=== PATIENT | female | born 1965 | race Caucasian/White ===

== ENCOUNTER 2016-03-17 00:10 | Emergency (ER) | payer OTHER ==
[~2016-03-17] VITALS: Ht 165.1 cm; Wt 90.9 kg
[~2016-03-17 00:10] MED LIST: AMOX500T2 PO; FLUC150T48 PO; HYDR-3090 PO; HYDR-4003 PO
[2016-03-17 00:12] VITALS: BP 160/103; PULSE 90; RESP 16; O2SAT 98
--- NOTE | 2016-03-17 01:14 | ED.REPORT ---
HPI-URI / Cough / Cold Date of Service Mar 17, 2016 ED Provider: Polo Iglesias DO A 51 year old female with a history of smoking and tonsillectomy presents to the ED complaining of a productive cough. This is accompanied by headache, congestion, diarrhea, dry throat, nausea, and dizziness. She denies vomiting. These symptoms began two weeks ago and have persisted since. Nursing Notes Stated Complaint: POSS FLU Chief Complaint: FLU/Cold Symptoms Nursing Notes Reviewed: Yes Allergies: Coded Allergies: No Known Allergies (Unverified , 05/01/15) Scheduled Amoxicillin (Amoxicillin) 500 Mg Tablet 500 MG PO TID Fluconazole (Diflucan) 150 Mg Tablet 150 MG PO ONCE Scheduled PRN Hydrocodone-Acetaminophen 5-300 mg (Hydrocodone-Acetaminophen 5-300 mg) 1 Each Tablet 1-2 TABLET PO Q4H PRN PRN For Pain Hydrocodone-Acetaminophen 5-325 mg (Hydrocodone-Acetaminophen 5-325 mg) 1 Each Tablet 1 TABLET PO Q4H PRN PRN For Pain General Time Seen by MD: 01:14 Chief Complaint Cough, productive... Hx Obtained From: Patient Arrived By: Walk-in Onset Occurred: More than a week ago... Symptom Duration: Since onset Recent Healthcare: No recent doctor visit, No recent hospitalization Similar Sx Previous: No Past Medical History Past Medical History Notes: PCP: None (confirmed 05/01/25) Past Medical History Healthy. Past Surgical History 1. Breast reduction (1995). 2. Tonsillectomy. Smoking History Current Every Day Smoker Social History Alcohol Use: Denies alcohol use Drug Use: Denies drug use Ambulatory Status Independent Review of Systems Respiratory: Reports: Prod cough, clear, Denies: Shortness of breath GI: Reports: Diarrhea, Nausea, Denies: Abdominal pain, Vomiting Skin: Denies Rash Neurologic: Reports: Dizziness, Headache Complete sys rev & neg: except as marked. Physical Exam Initial Vital Signs Vital Signs (First) Date Time Temp Pulse Resp B/P Pulse Ox O2 Delivery O2 Flow Rate FiO2 03/17/16 00:12 36.1 90 16 160/103 98 Room Air Initial VS: Reviewed General/Constitutional: Awake, Alert ENT: Atraumatic, Airway patent, Mucous membranes moist palate petichii Respiratory / Chest: Atraumatic, No respiratory distress rhonchi in left lobe Head / Eyes: Atraumatic, Normocephalic, PERRL, EOMI Neck: Atraumatic, Supple, Full range of motion Cardiovascular: Heart rate NL, Regular rhythm, Heart sounds NL Abdomen: Atraumatic, Soft, Non-tender Skin: Atraumatic, Color NL, No rash, Warm, Dry Neurologic: Oriented X3, Speech NL, No motor deficits, No sensory deficits Back: Atraumatic, Full range of motion Upper Extremity / MS: Atraumatic, Full range of motion Lower Extremity / Pelvis / MS: Atraumatic, Full range of motion Psychiatric: Affect NL, Mood NL Interpretation & Diagnostics Pulse Oximetry Interpretation Pulse Oximetry Interpretation: 98% on room air Pulse Oximetry: Pulse Ox normal Re-Eval/Medical Decision Med Decision/Clinical Course Impressive pharyngeal erythema and right nasal turbinate hypertrophy. No signs of meningitis. Influenza was negative. Symptomatic treatment recommended. Course of Augmentin prescribed for the sinus infection. Evidently she has yeast infections with antibiotics. She will be prescribed Diflucan as well. Routine outpatient follow-up. Routine opiate warnings given. Source of Hx: Old records Re-Evaluation/Progress : Time of Eval: 02:44 Patient Status: Condition improved Re-Evaluation/Progress Note: Pt rechecked, who is feeling significantly better and prepared for discharge. Her headache has improved and she is swallowing normally. The plan for discharge is discussed. The pt understands and agrees with the plan. All questions are addressed at this time. Counseled Regarding: Diagnosis, Need for follow-up, When/why to return to ED Discharge & Departure Impression: Primary Impression: Upper respiratory infection URI type: unspecified viral URI Qualified Code: J06.9 - Acute upper respiratory infection, unspecified Additional Impression: Sinusitis Sinusitis location: frontal Chronicity: acute Recurrence: non-recurrent Qualified Code: J01.10 - Acute frontal sinusitis, unspecified Disposition: Home Discharge Condition All VS Reviewed: Yes Condition: Stable Patient Instructions: Sinusitis (ED), Upper Respiratory Infection (ED) Additional Instructions: Augmentin two times daily for 7 days. Drink plenty of liquids. [facility] one to 2 every 6 hours as needed for pain. Motrin as directed for fever. Do not drive or drink alcohol or consume acetaminophen while taking the [facility]. If you are not much better in 48 hours come back to emergency department or be seen at the urgent care. Follow up next week your primary care physician. Call [facility] to set up a follow-up for Sunday or Sunday. Return if any problems or any worsening symptoms. Take one Diflucan every 72 hours for 2 doses if you develop signs or symptoms of a yeast infection. Referrals: Les Carreon PA-C (PCP) Jose Angel Attestation Portions of this note were transcribed by Susana Diaz. I, Dr. Iglesias personally performed the history, physical exam and medical decision-making; I reviewed and confirmed the accuracy of the information in the transcribed note. Signed by: Jose Angel Coates, 03/17/2016, 02:56 copies to: Les Carreon PA-C, Todd P DO Mar 17, 2016 01:14 SUSANA DIAZ Mar 17, 2016 01:43
[2016-03-17] MEDS ORDERED: Ketorolac 30 mg/mL 2 mL Inj IM ONE (01:45)
[2016-03-17] MEDS ORDERED: _HYDROcodone/APAP 5-325 mg Tablet PO PRN (01:45)
[2016-03-17] MEDS ORDERED: Dexamethasone 20 mg/2 mL Oral Solution PO ONE (01:45)
[2016-03-17 02:51] VITALS: BP 143/86; PULSE 83; RESP 18; O2SAT 95
== END 2016-03-17 02:53 | disposition home or self-care (01) ==
LOC: SED 00:10
DX: J01.10 Acute frontal sinusitis, unspecified (principal); F17.200 Nicotine dependence, unspecified, uncomplicated; Z90.89 Acquired absence of other organs
CPT/HCPCS: 87804; 96372; 99284; J1885